=== PATIENT | female | born 1955 | race Caucasian/White ===

== ENCOUNTER 2022-12-03 00:49 | Day surgery (SDC) | payer OTHER, SELFPAY ==
[2022-11-26 13:20] VITALS: BMI 24.3
[2022-12-03 08:52] VITALS: BP 143/85; PULSE 50; RESP 16; TEMP 36.4; O2SAT 100
[2022-12-03] MEDS: LACTATED RINGERS 1,000 ML 150 ML IV CONT (09:09)
--- NOTE | 2022-12-03 09:27 | PM.HPGS ---
History of Present Illness History of Present Illness Consent: Risks, benefits, and alternatives have been discussed and questions answered. Patient agrees to proceed with procedure. Chief complaint: family hx colon ca Narrative: April Phillips is a 67 year old female Presents for screening colonoscopy. Patient's family history is significant for many family members with colon cancer. Patient's father brother and mother all of had colon cancer. Brother had colon cancer at a very young age. Maternal grandmother had colon cancer a paternal uncle had colon cancer patient's other brother had colon polyps. Patient previous colonoscopy 2014 was unremarkable. She has never been identified as having colon polyps. Patient presents today for neoplasia screening. Review of Systems Review of Systems: Review of systems noncontributory. [facility]LY [facility], [facility] Past Medical History Medical History (Updated 02/04/22 @ 13:53 by Yesenia Tolbert, WILLIAM) Family hx of colon cancer Mixed hyperlipidemia TIA (transient ischemic attack) Family History Family History Mother Family history of diabetes mellitus in first degree relative Grandparent Family history of heart disease in male family member before age 55 Social History Social History Smoking status: Light tobacco smoker Tobacco type: cigarettes Alcohol intake: current Drinks per week: 14 Alcohol use details: 2-3 glasses wine daily Substance use: never Substance use type: does not use Living arrangements: with family Spiritual care concerns: No Meds Home Medications and Allergies Home Medications Medication Instructions Recorded Confirmed Type aspirin 81 mg tablet,delayed 81 mg PO DAILY 01/28/22 11/26/22 History release (Adult Aspirin Regimen) atorvastatin 20 mg tablet 20 mg PO DAILY 01/28/22 11/26/22 History bisoprolol 5 1 tablet PO DAILY 01/28/22 11/26/22 History mg-hydrochlorothiazide 6.25 mg tablet paroxetine HCl 10 mg tablet 10 mg PO DAILY 01/28/22 12/03/22 History Allergies Allergy/AdvReac Type Severity Reaction Status Date / Time No Known Allergies Allergy Unknown Verified 12/03/22 08:51 Vital Signs Vital Signs - 24 hr 12/03/22 08:52 Temperature 97.5 F L Pulse Rate 50 L Respiratory Rate 16 Blood Pressure 143/85 H Pulse Oximetry 100 Oxygen Delivery Room Air Exam Narrative: Physical exam reveals patient to be alert. Vital signs stable. HEENT exam is unremarkable. Patient is anicteric. Lungs are clear to auscultation and percussion. Heart is without murmur or extra sounds. Abdomen bowel sounds are present soft nontender with no organomegaly. Digital external rectal exam normal. Assessment and Plan Assessment and plan (1) Family hx of colon cancer: Code(s): Z80.0 - Family history of malignant neoplasm of digestive organs Status: Acute Assessment and Plan: Patient with a very strong family history of colon cancer. Recommend follow-up colonoscopy at least every 5 years. Further recommendations may be given after endoscopy.
--- NOTE | 2022-12-03 09:40 | WPDANESEPPF ---
Anes - Initial Pre Proc Eval Procedure: Operation Date: 12/03/22 10:00 Proposed Procedures p Colonoscopy - Danial Garibay MD Date/Time: 12/03/22 09:40 Surgeon: Danial Garibay MD Pre Op Diagnosis: family hx colon ca Patient Data Age: 67 Gender: F Height: 1.75 m Weight: 72.3 kg Last Vital Signs Temp 97.5 F L 12/03/22 08:52 Pulse 50 L 12/03/22 08:52 Resp 16 12/03/22 08:52 BP 143/85 H 12/03/22 08:52 Pulse Ox 100 12/03/22 08:52 O2 Del Method Room Air 12/03/22 08:52 Allergies Allergy/AdvReac Type Severity Reaction Status Date / Time No Known Allergies Allergy Unknown Verified 12/03/22 08:51 Home Medications Medication Instructions Recorded Confirmed Type aspirin 81 mg tablet,delayed 81 mg PO DAILY 01/28/22 11/26/22 History release (Adult Aspirin Regimen) atorvastatin 20 mg tablet 20 mg PO DAILY 01/28/22 11/26/22 History bisoprolol 5 1 tablet PO DAILY 01/28/22 11/26/22 History mg-hydrochlorothiazide 6.25 mg tablet paroxetine HCl 10 mg tablet 10 mg PO DAILY 01/28/22 12/03/22 History Patient hx anesthesia problems: none Family hx anesthesia problems: none Results Review: All pre-operative results and documents have been reviewed as part of the pre-operative evaluation. [facility] Past Medical History Medical History (Updated 02/04/22 @ 13:53 by Yesenia Tolbert, WILLIAM) Family hx of colon cancer Mixed hyperlipidemia TIA (transient ischemic attack) Family History Family History Mother Family history of diabetes mellitus in first degree relative Grandparent Family history of heart disease in male family member before age 55 Social History Social History Smoking status: Light tobacco smoker Tobacco type: cigarettes Alcohol intake: current Drinks per week: 14 Alcohol use details: 2-3 glasses wine daily Substance use: never Substance use type: does not use Living arrangements: with family Spiritual care concerns: No Anes - Eval Final PreProcedure Day of Procedure 12/03/22 09:40 Patient weight: normal Heart: regular rate and rhythm Lungs: clear to auscultation Airway: Mallampati scale class II Neurological: alert and oriented Last oral intake: >/= 8 hours ASA classification: III Emergent: no Anesthetic plan: proceed Anesthesia type and monitoring: general GIVS and standard monitoring Results Review: All pre-operative results and documents have been reviewed as part of the pre-operative evaluation. Informed Consent: The patient's anesthetic plan and its attendant risks and benefits were discussed with the patient/family/POA. Questions were solicited and answers provided to the satisfaction of the patient/family/POA.
[2022-12-03 10:21] VITALS: BP 83/49; PULSE 53; RESP 15; O2SAT 98
[2022-12-03 10:31] VITALS: BP 106/66; PULSE 52; RESP 19; O2SAT 97
[2022-12-03 10:41] VITALS: BP 116/76; PULSE 51; RESP 20; O2SAT 98
== END 2022-12-03 10:51 | disposition home or self-care (01) ==
PROVIDERS: PCP Nurse Practitioner Family; Visit Provider Internal Medicine Gastroenterology
PROC: 0DJD8ZZ Inspection of Lower Intestinal Tract, Via Natural or Artificial Opening Endoscopic (ICD-10-PCS; CPT 45378; principal; 2022-12-03 10:00)
DX: Z12.11 Encounter for screening for malignant neoplasm of colon (principal); Z80.0 Family history of malignant neoplasm of digestive organs; D12.2 Benign neoplasm of ascending colon; K63.5 Polyp of colon; Z86.73 Personal history of transient ischemic attack (TIA), and cerebral infarction without residual deficits; E78.2 Mixed hyperlipidemia; Z87.891 Personal history of nicotine dependence; Z79.82 Long term (current) use of aspirin
CPT/HCPCS: 45385; 88305; J2704; J7120